=== PATIENT | female | born 1970 | race Asian ===

== ENCOUNTER 2023-02-16 06:53 | Day surgery (SDC) | payer OTHER ==
[2023-02-12 14:17] VITALS: BMI 23.2
[2023-02-16] MEDS ORDERED: Lidocaine 1% PF 5 ML VIAL ONE (08:25)
[2023-02-16] MEDS ORDERED: PROPOFOL 20 ML ONE (08:25)
[2023-02-16] MEDS ORDERED: Acetaminophen 500 MG TAB ONE (08:33)
[2023-02-16] MEDS ORDERED: Methylergonovine 0.2 MG/ML VIAL ONE ×2 (09:20→09:37)
[2023-02-16] MEDS ORDERED: fentaNYL 50 mcg/mL 1 mL Vial ONE (09:33)
[2023-02-16] MEDS ORDERED: Midazolam HCl 2 mg/2 ml Vial ONE (09:33)
[2023-02-16] MEDS ORDERED: Lidocaine 1% w/Epinephrine 1:100K 20 ML VIAL ONE (09:44)
== END 2023-02-16 11:40 | disposition home or self-care (01) ==
LOC: CSHSDC 06:53
PROVIDERS: ATTEND Obstetrics & Gynecology
PROC: 0UBC8ZZ Excision of Cervix, Via Natural or Artificial Opening Endoscopic (ICD-10-PCS; principal; 2023-02-16)
DX: R87.613 High grade squamous intraepithelial lesion on cytologic smear of cervix (HGSIL) (principal); N72 Inflammatory disease of cervix uteri; K21.9 Gastro-esophageal reflux disease without esophagitis; E03.9 Hypothyroidism, unspecified; M19.90 Unspecified osteoarthritis, unspecified site; Z91.041 Radiographic dye allergy status; Z88.8 Allergy status to other drugs, medicaments and biological substances; Z79.890 Hormone replacement therapy; Z79.899 Other long term (current) drug therapy
CPT/HCPCS: 88305; J2210; J2250; J2704; J3010